=== PATIENT | female | born 1985 | race American Indian/Alaskan Native ===

== ENCOUNTER 2017-07-07 15:25 | Emergency (ER) | payer SELFPAY ==
[2017-07-07 16:01] VITALS: BP 110/78
[2017-07-07 16:30] LABS: Basophils % (Auto) 0.3 % (0.0-1.8); Eosinophils % (Auto) 0.5 % (0.0-4.3); Hemoglobin 13.2 gm/dl (10.1-14.3); Mean Corpuscular HGB Conc 35 % (30-34); Mean Corpuscular Hemoglobin 34 pg (28-32); Mean Corpuscular Volume 96 fl (79-97); Platelet Count 324 K/mm3 (140-440); Red Blood Count 3.94 M/mm3 (3.65-5.03); Red Cell Distribution Width 13.7 % (13.2-15.2); White Blood Count 7.3 K/mm3 (4.5-11.0)
[2017-07-07 16:49] LABS: Anion Gap 16 mmol/L; BUN/Creatinine Ratio 26; Blood Urea Nitrogen 13 mg/dL (7-17); Calcium 9.4 mg/dL (8.4-10.2); Carbon Dioxide 23 mmol/L (22-30); Chloride 105.3 mmol/L (98-107); Glucose 104 mg/dL (65-100); Potassium 4.1 mmol/L (3.6-5.0); Sodium 140 mmol/L (137-145)
[2017-07-07 17:29] LABS: Bacteria,Urine 1+ /HPF (Negative); Bilirubin,Urine NEG (Negative); Blood,Urine SM (Negative); Ketones,Urine NEG (Negative); Leukocyte Esterase,Urine SM (Negative); Mucus,Urine 3+ /HPF; Nitrite,Urine NEG (Negative); Protein,Urine <15 mg/dL mg/dL (Negative); Urobilinogen,Urine < 2.0 mg/dL (<2.0)
--- NOTE | 2017-07-07 18:03 | Emergency Department Report ---
ED General Adult HPI - General Chief complaint: Nausea/Vomiting/Diarrhea Stated complaint: DIARRHEA Time Seen by Provider: 07/07/17 17:00 Source: patient Mode of arrival: Ambulatory Limitations: No Limitations - Related Data Home Medications Medication Instructions Recorded Confirmed Last Taken No Known Home Medications [No 07/07/17 07/07/17 Unknown Reported Home Medications] Allergies Allergy/AdvReac Type Severity Reaction Status Date / Time No Known Allergies Allergy Unverified 07/07/17 15:57 ED Review of Systems ROS: Stated complaint: DIARRHEA Other details as noted in HPI Comment: Unobtainable due to pts medical conditions Constitutional: no symptoms reported, see HPI. denies: chills Eyes: as per HPI. denies: eye pain ENT: as per HPI. denies: ear pain, throat pain Respiratory: no symptoms reported, see HPI. denies: cough, orthopnea Cardiovascular: as per HPI. denies: chest pain, palpitations, dyspnea on exertion, orthopnea Endocrine: no symptoms reported, see HPI. denies: excessive sweating, flushing , intolerance to cold, intolerance to heat Gastrointestinal: as per HPI, nausea, diarrhea. denies: abdominal pain, vomiting, constipation, hematemesis, melena, hematochezia Genitourinary: as per HPI. denies: urgency, dysuria, frequency, hematuria, discharge Musculoskeletal: as per HPI. denies: back pain Skin: as per HPI. denies: rash, lesions Neurological: as per HPI. denies: headache, weakness Psychiatric: as per HPI. denies: anxiety, depression Hematological/Lymphatic: as per HPI. denies: easy bleeding ED Past Medical Hx - Past Medical History Previous Medical History?: Yes Additional medical history: Vaginal delivery - Surgical History Past Surgical History?: Yes Additional Surgical History: Umbilical hernia surgery, Yefri eye surgery for being cross-eyed - Social History Smoking Status: Current Every Day Smoker Substance Use Type: Alcohol, Non Opiate Pain - Medications Home Medications: Home Medications Medication Instructions Recorded Confirmed Last Taken Type No Known Home Medications [No 07/07/17 07/07/17 Unknown History Reported Home Medications] ED Physical Exam - General Limitations: No Limitations General appearance: alert - Head Head exam: Present: atraumatic - Eye Eye exam: Present: PERRL - ENT ENT exam: Present: mucous membranes moist - Neck Neck exam: Present: normal inspection - Respiratory Respiratory exam: Present: normal lung sounds bilaterally - Cardiovascular Cardiovascular Exam: Present: regular rate - GI/Abdominal GI/Abdominal exam: Present: soft, normal bowel sounds, hernia. Absent: distended, tenderness, guarding, rebound, rigid, diminished bowel sounds, hyperactive bowel sounds, hypoactive bowel sounds, organomegaly, mass, bruit, pulsatile mass - Rectal Rectal exam: Present: deferred - Extremities Exam Extremities exam: Present: normal inspection - Back Exam Back exam: Present: normal inspection, full ROM. Absent: tenderness, CVA tenderness (R), CVA tenderness (L) - Neurological Exam Neurological exam: Present: alert, oriented X3, CN II-XII intact - Psychiatric Psychiatric exam: Present: normal affect, normal mood - Skin Skin exam: Present: warm, dry, intact ED Course Vital Signs 07/07/17 15:57 Temperature 98.6 F Pulse Rate 79 Respiratory 18 Rate Blood Pressure 110/78 O2 Sat by Pulse 100 Oximetry - Reevaluation(s) Reevaluation #1: 07/07/17 18:06 to er w diarrhea since tues p eating crabs vss non toxic no fever abd snt labs noted dc home w outpt follow up ED Medical Decision Making - Lab Data Result diagrams: 07/07/17 16:17 07/07/17 16:17 - Medical Decision Making labs noted ua noted ate crabs Tues and s/s started non toxic taking po Critical care attestation.: If time is entered above; I have spent that time in minutes in the direct care of this critically ill patient, excluding procedure time. ED Disposition Clinical Impression: Diarrhea, Hernia Disposition: DC-01 TO HOME OR SELFCARE Is pt being admited?: No Does the pt Need Aspirin: No Condition: Stable Instructions: Umbilical Hernia (ED), Acute Diarrhea (ED) Additional Instructions: fluids fluids fluids if not better sunday follow up GI if you decide to have hernia repaired there is Gen surg listed below bland diet bananas, rice, applesauce and toast Referrals: PRIMARY CARE, [Primary Care Provider] - 3-5 Days ZEFERINO SANDERSON MD [Staff Physician] - 3-5 Days HARDY MAO MD [Staff Physician] - 3-5 Days RAKESH DURHAM MD [Staff Physician] - 3-5 Days KODAK ULRICH MD [Staff Physician] - 3-5 Days Time of Disposition: 18:02
== END 2017-07-07 18:24 | disposition home or self-care (01) ==
LOC: ED 15:25
DX: K46.9 Unspecified abdominal hernia without obstruction or gangrene (principal); F17.210 Nicotine dependence, cigarettes, uncomplicated
CPT/HCPCS: 36415; 80048; 81001; 81025; 85025; 99283

== ENCOUNTER 2020-06-21 09:56 | Emergency (ER) | payer OTHER ==
[2020-06-21 10:01] VITALS: BP 126/80
[2020-06-21 10:39] LABS: HCG Qualitative,Urine Negative (Negative)
[2020-06-21 10:43] LABS: Bacteria,Urine 1+ /HPF (Negative); Bilirubin,Urine NEG (Negative); Blood,Urine NEG (Negative); Color,Urine Yellow (Yellow); Mucus,Urine 3+ /HPF; Protein,Urine <15 mg/dL mg/dL (Negative)
--- NOTE | 2020-06-21 10:58 | Emergency Department Report ---
ED Female HPI - General Chief complaint: Abdominal Pain Stated complaint: ABD PAIN/VAG SMELL Time Seen by Provider: 06/21/20 10:26 Source: patient Mode of arrival: Ambulatory Limitations: No Limitations - History of Present Illness Initial comments: 34-year-old -Stateless female presents to the emergency room complaining of lower abdominal pain and states that her vaginal has a funny smell. Patient states this been going on for about a month. This is the first time patient has been evaluated for this complaint. Patient is taking nothing for pain and reports her pains a 5 out of 10. Patient denies any dysuria she denies any vaginal discharge or vaginal bleeding. She reports her last menstrual period was 06/03/2020. She is 1 para 1. Patient does admit to having unprotected intercourse with 1 partner in the last 6 months. Patient denies any nausea vomiting no fever no chills. Onset/Timin -: month(s) Location: suprapubic Radiation: non-radiating Severity: moderate Severity scale (0 -10): 5 Quality: aching Consistency: intermittent Improves with: none Worsens with: none Are you Now?: No Last Menstrual Period: 06/03/20 EDC: 03/10/21 Associated Symptoms: denies other symptoms - Related Data Sexually active: Yes (1 partner unprotected last 6 months) : 1 Para: 1 Previous Rx's Medication Instructions Recorded Last Taken Type Nitrofurantoin [place]/M-Cryst 100 mg PO Q12HR 7 Days #14 capsule 06/21/20 Unknown Rx [Macrobid CAP] Allergies Allergy/AdvReac Type Severity Reaction Status Date / Time No Known Allergies Allergy Unverified 07/07/17 15:57 ED Review of Systems ROS: Stated complaint: ABD PAIN/VAG SMELL Other details as noted in HPI ED Past Medical Hx - Past Medical History Previous Medical History?: No Additional medical history: Vaginal delivery - Surgical History Past Surgical History?: Yes Additional Surgical History: Umbilical hernia surgery, Yefri eye surgery for being cross-eyed - Social History Smoking Status: Never Smoker Substance Use Type: None - Medications Home Medications: Home Medications Medication Instructions Recorded Confirmed Last Taken Type Nitrofurantoin [place]/M-Cryst 100 mg PO Q12HR 7 Days #14 capsule 06/21/20 Unknown Rx [Macrobid CAP] ED Physical Exam - General Limitations: No Limitations General appearance: alert, in no apparent distress - Head Head exam: Present: atraumatic, normocephalic - Eye Eye exam: Present: normal appearance - ENT ENT exam: Present: mucous membranes moist - Neck Neck exam: Present: normal inspection - GI/Abdominal GI/Abdominal exam: Present: soft, tenderness (Suprapubic). Absent: distended - Neurological Exam Neurological exam: Present: alert, oriented X3 - Psychiatric Psychiatric exam: Present: normal affect, normal mood - Skin Skin exam: Present: warm, dry, intact, normal color. Absent: rash ED Course Vital Signs 06/21/20 09:59 Temperature 98.4 F Pulse Rate 100 H Respiratory 18 Rate Blood Pressure 126/80 O2 Sat by Pulse 98 Oximetry ED Medical Decision Making - Medical Decision Making 34-year-old -Stateless female presents to the emergency room complaining of lower abdominal pain and states that her vaginal has a funny smell. Patient states this been going on for about a month. This is the first time patient has been evaluated for this complaint. Patient is taking nothing for pain and reports her pains a 5 out of 10. Patient denies any dysuria she denies any vaginal discharge or vaginal bleeding. She reports her last menstrual period was 06/03/2020. She is 1 para 1. Patient does admit to having unprotec haseeb intercourse with 1 partner in the last 6 months. Patient denies any nausea vomiting no fever no chills. Patient's urinalysis is back shows positive nitrates 10 WBCs. Patient be treated for urinary tract infection placed on Macrobid instructed to take [id number] ibuprofen or Tylenol for pain. Instructed patient to void after intercourse increase her fluid intake. Critical care attestation.: If time is entered above; I have spent that time in minutes in the direct care of this critically ill patient, excluding procedure time. ED Disposition Clinical Impression: UTI (urinary tract infection) Disposition: TO HOME OR SELFCARE Is pt being admited?: No Does the pt Need Aspirin: No Condition: Stable Instructions: Abdominal Pain (ED), Urinary Tract Infection in Women (ED) Additional Instructions: Urine shows that you have a urinary tract infection. Please complete your antibiotics as prescribed. Increase your water intake. Void after intercourse and be sure to wipe from front to back. Follow-up with an NURSERY ATTENDANT. Prescriptions: Nitrofurantoin [place]/M-Cryst [Macrobid CAP] 100 mg PO Q12HR 7 Days #14 capsule Referrals: [facility] [Provider Group] - 3-5 Days [facility] [Provider Group] - 3-5 Days Forms: Work/School Release Form(ED)
== END 2020-06-21 11:04 | disposition home or self-care (01) ==
LOC: ED 09:56
DX: N39.0 Urinary tract infection, site not specified (principal); Z98.890 Other specified postprocedural states
CPT/HCPCS: 81001; 81025; 87086; 99283